=== PATIENT | female | born 1960 | race Caucasian/White ===

== ENCOUNTER 2022-07-02 11:31 | Emergency (ER) | payer OTHER ==
[~2022-07-02] VITALS: Ht 165.1 cm; Wt 42.2 kg
[2022-07-02] MEDS ORDERED: OXAYDO5 M1 PO (15:54)
[2022-07-02] MEDS ORDERED: IBUP600 PO (15:54)
== END 2022-07-02 16:19 | disposition home or self-care (01) ==
LOC: ER 11:31
DX: M25.512 Pain in left shoulder (principal); J44.9 Chronic obstructive pulmonary disease, unspecified; F17.200 Nicotine dependence, unspecified, uncomplicated
CPT/HCPCS: 93005; 93010; 96374; 99283-25; A9270; J1170

== ENCOUNTER 2022-12-09 10:43 | Emergency (ER) | payer OTHER ==
[~2022-12-09] VITALS: Ht 165.1 cm; Wt 43.1 kg
[~2022-12-09 10:43] MED LIST: IBUP600 PO; OXAYDO5 M1 PO
[2022-12-09 10:51] VITALS: BP 122/81
[2022-12-09] MEDS ORDERED: PRED20 PO (12:08)
[2022-12-09] MEDS ORDERED: Robaxin750 MG PO (12:21)
== END 2022-12-09 12:28 | disposition home or self-care (01) ==
LOC: ER 10:43
DX: M54.50 Low back pain, unspecified (principal); J44.9 Chronic obstructive pulmonary disease, unspecified; Z87.891 Personal history of nicotine dependence
CPT/HCPCS: A9270; J1885; J7512

== ENCOUNTER → 2022-12-16 | Outpatient (CLI) | payer OTHER ==
[~2022-12-16] MED LIST changes: +PRED20 PO; +Robaxin750 MG PO
[2022-12-16 18:57] LABS: BASOPHILS ABSOLUTE AUTO 0.05 K/mm3 (0.00-0.23); BASOPHILS PERCENT AUTO 1 % (0-2); EOSINOPHILS ABSOLUTE AUTO 0.08 K/mm3 (0.00-0.68); EOSINOPHILS PERCENT AUTO 1 % (0-6); Hematocrit 35.7 % (33.0-51.0); Hemoglobin 12.7 g/dL (11.5-16.0); IMMATURE GRAN ABSOLUTE AUTO 0.01 K/mm3 (0.00-0.10); IMMATURE GRAN PERCENT AUTO 0 % (0-1); LYMPHOCYTES ABSOLUTE AUTO 2.12 K/mm3 (0.84-5.20); LYMPHOCYTES PERCENT AUTO 28 % (21-46); MONOCYTES ABSOLUTE AUTO 0.67 K/mm3 (0.16-1.47); MONOCYTES PERCENT AUTO 9 % (4-13); Mean Corpuscular HGB 33.5 pg (26.0-34.0); Mean Corpuscular HGB Conc 35.6 g/dL (31.5-36.5); Mean Corpuscular Volume 94 fL (80-100); Mean Platelet Volume 9.7 fL (9.1-12.4); NEUTROPHILS ABSOLUTE AUTO 4.58 K/mm3 (1.96-9.15); NEUTROPHILS PERCENT AUTO 61 % (41-73); Platelet Count 273 K/mm3 (150-400); RDW Coefficient Variation 12.5 % (11.7-14.2); RDW Standard Deviation 43.6 fL (35.1-46.3); Red Blood Cell Count 3.79 M/mm3 (3.80-5.20); White Blood Cell Count 7.51 K/mm3 (4.00-11.30)
[2022-12-16 20:04] LABS: Alanine Aminotransfer (ALT/SGP 22 U/L (12-78); Albumin/Globulin Ratio 1.2 (0.8-1.8); Alk Phos 107 U/L (50-136); Anion Gap 5 mmol/L (6-16); Aspartate Aminotrans (AST/SGOT 18 U/L (12-37); Bilirubin, Total 0.4 mg/dL (0.1-1.0); Blood Urea Nitrogen 17 mg/dL (8-24); Bun/Creatinine Ratio 26.2 (12.0-20.0); CHOL/HDL RATIO 3.8; CO2, Blood 24 mmol/L (21-32); Calcium, Blood 9.3 mg/dL (8.5-10.1); Chloride, Blood 110 mmol/L (98-108); Cholesterol 203 mg/dL (50-200); Creatinine, Blood 0.65 mg/dL (0.40-1.00); Globulin, Blood 3.2 g/dL (2.2-4.0); Glomerular Filtration Rate 100 (60-); Glucose, Blood 109 mg/dL (70-99); HDL Cholesterol 53 mg/dL (>39); LDL/HDL RATIO 2.1; Low Density Lipoprotein Chol 112 mg/dL (0-110); Potassium, Blood 3.3 mmol/L (3.5-5.5); Sodium, Blood 139 mmol/L (136-145); Total Protein, Blood 7.2 g/dL (6.4-8.2); Triglycerides 191 mg/dL (30-160); Very Low Density Lipoprot Chol 38 mg/dL (6-32)
[2022-12-16 20:06] LABS: Thyroid Stimulating Hormone 0.274 uIU/mL (0.360-4.800)
== END | disposition home or self-care (01) ==
LOC: LAB 17:20 → LAB SHORT 17:20
PROVIDERS: Physician Assistant
DX: Z51.81 Encounter for therapeutic drug level monitoring (principal); Z79.899 Other long term (current) drug therapy
CPT/HCPCS: 80053; 80061; 82306; 83036; 84443; 85025

== ENCOUNTER 2023-10-27 13:33 | Emergency (ER) | payer OTHER ==
[~2023-10-27] VITALS: Ht 165.1 cm; Wt 40.8 kg
[2023-10-27 13:55] VITALS: BP 138/88
[2023-10-27] MEDS ORDERED: LIDOCAINE15 GM TOP (16:05)
[2023-10-27] MEDS ORDERED: LIDO700A20 TOP (16:05)
[2023-10-27] MEDS ORDERED: TRAM50 PO (16:05)
== END 2023-10-27 16:12 | disposition home or self-care (01) ==
LOC: ER 13:33
DX: M25.512 Pain in left shoulder (principal); W18.30XA Fall on same level, unspecified, initial encounter; M19.012 Primary osteoarthritis, left shoulder; J44.9 Chronic obstructive pulmonary disease, unspecified; Z79.899 Other long term (current) drug therapy; Z87.891 Personal history of nicotine dependence
CPT/HCPCS: 73030; 99283-25

== ENCOUNTER → 2024-07-19 | Outpatient (CLI) | payer OTHER ==
[~2024-07-19] MED LIST changes: +LIDO700A20 TOP; +LIDOCAINE15 GM TOP; +TRAM50 PO
[2024-07-19 16:14] LABS: BASOPHILS ABSOLUTE AUTO 0.09 K/mm3 (0.00-0.23); BASOPHILS PERCENT AUTO 1 % (0-2); EOSINOPHILS ABSOLUTE AUTO 0.11 K/mm3 (0.00-0.68); EOSINOPHILS PERCENT AUTO 2 % (0-6); Hematocrit 38.6 % (33.0-51.0); Hemoglobin 13.2 g/dL (11.5-16.0); IMMATURE GRAN ABSOLUTE AUTO 0.02 K/mm3 (0.00-0.10); IMMATURE GRAN PERCENT AUTO 0 % (0-1); LYMPHOCYTES ABSOLUTE AUTO 1.52 K/mm3 (0.84-5.20); LYMPHOCYTES PERCENT AUTO 21 % (21-46); MONOCYTES ABSOLUTE AUTO 0.65 K/mm3 (0.16-1.47); MONOCYTES PERCENT AUTO 9 % (4-13); Mean Corpuscular HGB Conc 34.2 g/dL (31.5-36.5); Mean Corpuscular Volume 97 fL (80-100); Mean Platelet Volume 9.8 fL (9.1-12.4); NEUTROPHILS ABSOLUTE AUTO 4.82 K/mm3 (1.96-9.15); NEUTROPHILS PERCENT AUTO 67 % (41-73); Platelet Count 304 K/mm3 (150-400); RDW Standard Deviation 46.3 fL (35.1-46.3); White Blood Cell Count 7.21 K/mm3 (4.00-11.30)
[2024-07-19 16:57] LABS: Alanine Aminotransfer (ALT/SGP 18 U/L (12-78); Albumin/Globulin Ratio 1.2 (0.8-1.8); Alk Phos 105 U/L (50-136); Anion Gap 14 mmol/L (3-11); Aspartate Aminotrans (AST/SGOT 19 U/L (12-37); Bilirubin, Total 0.5 mg/dL (0.1-1.0); Blood Urea Nitrogen 21 mg/dL (8-24); Bun/Creatinine Ratio 29.6 (12.0-20.0); CHOL/HDL RATIO 3.6; CO2, Blood 20 mmol/L (21-32); Calcium, Blood 8.6 mg/dL (8.5-10.1); Chloride, Blood 106 mmol/L (98-108); Cholesterol 218 mg/dL (50-200); Creatinine, Blood 0.71 mg/dL (0.40-1.00); Globulin, Blood 3.3 g/dL (2.2-4.0); Glomerular Filtration Rate 96 (60-); Glucose, Blood 110 mg/dL (70-99); HDL Cholesterol 60 mg/dL (>39); LDL/HDL RATIO 2.2; Low Density Lipoprotein Chol 133 mg/dL (0-110); Potassium, Blood 3.9 mmol/L (3.5-5.5); Sodium, Blood 136 mmol/L (136-145); Thyroid Stimulating Hormone 0.856 uIU/mL (0.360-4.800); Total Protein, Blood 7.3 g/dL (6.4-8.2); Triglycerides 125 mg/dL (30-160); Very Low Density Lipoprot Chol 25 mg/dL (6-32)
== END ==
LOC: LAB 15:39 → LAB SHORT 15:39
PROVIDERS: Physician Assistant
DX: Z51.81 Encounter for therapeutic drug level monitoring (principal); Z79.899 Other long term (current) drug therapy
CPT/HCPCS: 80053; 80061; 82306; 83036; 84443; 85025